=== PATIENT | male | born 1950 | race Native Hawaiian/Other Pacific Islander ===

== ENCOUNTER 2022-04-16 13:02 | Emergency (ER) | payer MEDICARE ==
[2022-04-16] MEDS ORDERED: Zofran 4 MG/2 ML VIAL IV ONE (14:21)
[2022-04-16] MEDS ORDERED: SUBLIMAZE 100 MCG/2 ML IV ONE (14:21)
[2022-04-16] MEDS ORDERED: Zofran 4 MG/2 ML VIAL ONE (14:24)
[2022-04-16] MEDS ORDERED: SUBLIMAZE 100 MCG/2 ML ONE (14:25)
[2022-04-16 14:43] LABS: Absolute Neutrophil Ct (ANC) 3.38 x10^3/uL (1.4-6.9); BASOPHIL % 1.3 % (0.0-0.4); Basophil (Absolute #) 0.07 x10^3/uL (0-0.4); Eosinophil % 3.3 % (0.00-5.0); Eosinophil (Absolute #) 0.18 x10^3/uL (0-0.5); Hematocrit 43.7 % (42-50); IMMATURE GRAN # 0.02 x10^3u/L (0.00-0.03); IMMATURE GRAN % 0.4 % (0.00-0.4); Lymphocyte (Absolute #) 1.39 x10^3/uL (1.0-4.6); Lymphocytes % 25.2 % (24.0-44.0); Mean Cell Volume 97.5 fL (78-100); Mean Corpuscular Hemoglobin 33.5 pg (26-32); Mean Corpuscular Hgb Concent. 34.3 g/dL (32-36); Mean Platelet Volume 9.6 fL (7.5-11.0); Monocyte (Absolute #) 0.48 x10^3/uL (0.0-1.3); Monocytes % 8.7 % (0.0-12.0); Neutrophil % 61.1 % (36.0-66.0); Platelet Count 173 x10^3/uL (150-450); Red Blood Count 4.48 x10^6/uL (4.1-5.6); Red Cell Distribution Width 12.7 % (11.5-14.0); White Blood Count 5.5 x10^3/uL (4.0-10.5)
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
[2022-04-16 15:33] LABS: ALBUMIN 3.4 g/dL (3.5-5.0); ALKALINE PHOSPHATASE 98 U/L (38-126); ANION GAP 5.9 MEQ/L (5-15); BLOOD UREA NITROGEN 6 mg/dL (9-20); CHLORIDE 93 mmol/L (98-107); Calcium 8.4 mg/dL (8.4-10.2); Carbon Dioxide 33 mmol/L (22-30); Creatinine 1 0.57 mg/dL (0.66-1.25); EST GLOMERULAR FILTRATION RATE > 60.0 ML/MIN; Glucose 308 mg/dL (74-106); Potassium 3.6 mmol/L (3.5-5.1); SGOT/AST 62 U/L (17-59); SGPT/ALT 47 U/L (0-50); SODIUM 128 mmol/L (137-145); Total Protein 6.1 g/dL (6.3-8.2)
[2022-04-16] MEDS ORDERED: VANCOMYCIN 1 GRAM/200 ML BAG 1 GM/200 ML PIGGYBACK IV ONE ×2 (16:25→16:29)
[2022-04-16 16:56] LABS: INFLUENZA A NEGATIVE (NEGATIVE); INFLUENZA B NEGATIVE (NEGATIVE); RESPIRATORY SYNCTIAL VIRUS NEGATIVE (Negative); SARS-CoV-2 Xpert Express NEGATIVE (NEGATIVE)
[2022-04-16] MEDS ORDERED: HYDROCODONE-ACETAMIN 10-325 MG PO STA (17:08)
[2022-04-16] MEDS ORDERED: HUMALOG SQ PRN (17:09)
[2022-04-16] MEDS ORDERED: HYDROCODONE-ACETAMIN 10-325 MG PO ONE (22:49)
[2022-04-17] MEDS ORDERED: HYDROCODONE-ACETAMIN 10-325 MG PO PRN (03:37)
[2022-04-17] MEDS ORDERED: VANCOMYCIN 1 GRAM/200 ML BAG 1 GM/200 ML PIGGYBACK IV SCH (03:45)
[2022-04-17] MEDS ORDERED: VANCOMYCIN 1 GRAM/200 ML BAG 1 GM/200 ML PIGGYBACK IV ONE ×2 (03:47→04:30)
[2022-04-17 09:56] VITALS: BP 138/78; PULSE 78; O2SAT 98
[2022-04-17] MEDS ORDERED: Lasix 40 MG/4 ML IV SCH (10:00)
== END 2022-04-17 10:10 | disposition short-term general hospital (02) ==
LOC: ED 13:02
DX: S41.112A Laceration without foreign body of left upper arm, initial encounter (principal); L08.9 Local infection of the skin and subcutaneous tissue, unspecified; M79.622 Pain in left upper arm; I10 Essential (primary) hypertension; Z28.310 Unvaccinated for COVID-19; Z72.0 Tobacco use; Z20.828 Contact with and (suspected) exposure to other viral communicable diseases
CPT/HCPCS: 0241U; 36000; 36415; 80053; 83605; 85025; 87040; 96365; 96366; 96374; 96375; 99284; J2405; J3010; A9270-GY; J3370